=== PATIENT | female | born 1945 | race Caucasian/White ===

== ENCOUNTER → 2020-11-11 12:28 | Outpatient (CLI) | payer MEDICARE, SELFPAY ==
--- NOTE | ~2020-11-11 | MM_ITS ---
EXAMINATION: MM screening [facility] BI w maite HISTORY: Screening mammogram TECHNIQUE: Craniocaudal and mediolateral oblique 3-D tomosynthesis images were obtained and synthetic 2-D images were generated. CAD analysis was submitted and interpreted. COMPARISON: 08/04/2019, 05/01/2018, 04/18/2017 BREAST PARENCHYMAL COMPOSITION: The breasts are heterogeneously dense, which may obscure small masses . FINDINGS: RIGHT BREAST: An asymmetry is present in the posterior third of the upper breast 7 cm from the nipple on the mediolateral oblique view. LEFT BREAST: There is no evidence of suspicious mass, calcification, or architectural distortion to s uggest malignancy. There has been no significant interval change. IMPRESSION: 1. Right breast asymmetry. 2. Additional mammographic views and possible breast ultrasound are recommended. BI-RADS Category 0: Incomplete: Needs additional imaging evaluation. Reviewed, dictated and finalized at location A. ROL ROOM TENDER IMPRESSION: 1. Right breast asymmetry. 2. Additional mammographic views and possible breast ultrasound are recommended . BI-RADS Category 0: Incomplete: Needs additional imaging evaluation.
== END ==
PROVIDERS: PCP Internal Medicine; Visit Provider Internal Medicine
DX: Z12.31 Encounter for screening mammogram for malignant neoplasm of breast (principal); R92.8 Other abnormal and inconclusive findings on diagnostic imaging of breast
CPT/HCPCS: 77063; 77067

== ENCOUNTER → 2020-12-03 14:19 | Outpatient (CLI) | payer MEDICARE, SELFPAY ==
--- NOTE | ~2020-12-03 | MM_ITS ---
EXAMINATION: MM diagnostic mammo unilat RT HISTORY: Right breast asymmetry on screening mammogram TECHNIQUE: Additional 3-D tomosynthesis images of the right breast were performed and synthetic 2-D i mages were generated. CAD analysis was submitted and interpreted. COMPARISON: 11/11/2020, 08/04/2019, 05/01/2018, 04/18/2017 BREAST PARENCHYMAL COMPOSITION: The breasts are heterogeneously dense, which may obscure small masses . FINDINGS: There is a return to baseline fibroglandular appearance in the right breast with spot compr ession views. No suspicious mass, calcification, or architectural distortion are identified. IMPRESSION: 1. No mammographic evidence of malignancy. 2. Recommend routine screening mammography in one year. BI-RADS Category 1: Negative Reviewed, dictated and finalized at location A. E GAMES SUPERVISOR
== END ==
PROVIDERS: PCP Internal Medicine; Visit Provider Internal Medicine
DX: R92.8 Other abnormal and inconclusive findings on diagnostic imaging of breast (principal)
CPT/HCPCS: 77065

== ENCOUNTER 2021-02-15 08:53 | Outpatient (CLI) | payer MEDICARE, SELFPAY ==
--- NOTE | ~2021-02-15 | US_ITS ---
EXAMINATION: US carotid duplex BI DATE: 02/15/2021 09:24 INDICATION: Referral vascular disease. TECHNIQUE: Grayscale, color Doppler, and pulsed Doppler images of the cervical carotid arteries were obtained. The degree of vessel stenosis is placed in one of the following categories: normal, <50%, 5 0-69%, >=70% but less than near-occlusion, near-occlusion, or total occlusion. Note that percent sten osis relative to normal distal artery lumen diameter is indirectly measured from velocity measurement s as described by Davis, et al. Radiology 2003; 229:340-346. Notes: Normal: Peak systolic velocity <125 centimeters/sec and no plaque <50%. Peak systolic velocity <125 ( EDV <40; ICA/CCA PSV ratio <2.0; used these factors only a tandem lesions or low cardiac output or co ntralateral disease) 50-69 %: PSV 125-230 (EDV 40-100; ratio 2-4) >= 70% but less than near occlusion: PSV greater than 230 (EDV > 100; ratio> 4.0) Near Occlusion: PSV that is variable; markedly narrowed lumen Occlusion: Absent flow on color/spectral Doppler and no lumen on tovar scale. COMPARISON: None. FINDINGS: RIGHT: The right common carotid artery (CCA) peak systolic velocity (PSV) is 83 cm/s. The right internal car otid artery (ICA) PSV is 73 cm/s. The right ICA end-diastolic velocity (EDV) is 19 cm/s. The right IC A/CCA PSV ratio is 0.9. The external carotid artery (ECA) PSV is 108 cm/s. There is antegrade flow in the right vertebral artery. LEFT: The left CCA PSV is 87 cm/s. The left ICA PSV is 97 cm/s. The left ICA EDV is 31 cm/s. The left ICA/C CA PSV ratio is 1.1. The ECA PSV is 123 cm/s. There is antegrade flow in the left vertebral artery. IMPRESSION: 1. Less than 50% stenosis in the right internal carotid artery by sonographic criteria. 2. Less than 50% stenosis in the left internal carotid artery by sonographic criteria. Reviewed, dictated and finalized at location A. IMPRESSION: 1. Less than 50% stenosis in the right internal carotid artery by sonographic emmett harper. 2. Less than 50% stenosis in the left internal carotid artery by sonographic mariella parra.
== END 2021-02-15 08:54 | disposition home or self-care (01) ==
PROVIDERS: PCP Internal Medicine; Visit Provider Internal Medicine
DX: R09.89 Other specified symptoms and signs involving the circulatory and respiratory systems (principal); I65.23 Occlusion and stenosis of bilateral carotid arteries
CPT/HCPCS: 93880

== ENCOUNTER → 2021-04-05 10:28 | Outpatient (REF) | payer MEDICARE, SELFPAY | LOC: ANHLAB 10:28 | PROVIDERS: PCP Internal Medicine; Visit Provider Nurse Practitioner | DX: D22.39 Melanocytic nevi of other parts of face (principal) | CPT/HCPCS: 88305 ==

== ENCOUNTER → 2022-01-25 13:17 | Outpatient (CLI) | payer MEDICARE, SELFPAY ==
--- NOTE | ~2022-01-25 | MM_ITS ---
EXAMINATION: MM screening [facility] BI w maite HISTORY: Screening mammogram TECHNIQUE: Craniocaudal and mediolateral oblique 3-D tomosynthesis images were obtained and synthetic 2-D images were generated. CAD analysis was submitted and interpreted. COMPARISON: 12/03/2020, 11/11/2020, 08/04/2019 BREAST PARENCHYMAL COMPOSITION: There are scattered areas of fibroglandular density. FINDINGS: There is no evidence of suspicious mass, calcification, or architectural distortion to sugg est malignancy in either breast. There has been no suspicious interval change. IMPRESSION: 1. No mammographic evidence of malignancy. 2. Recommend routine screening mammography in one year. BI-RADS Category 1: Negative Reviewed, dictated and finalized at location A. OR INTERACTION DESIGNER
== END ==
PROVIDERS: Visit Provider Internal Medicine
DX: Z12.31 Encounter for screening mammogram for malignant neoplasm of breast (principal)
CPT/HCPCS: 77063; 77067

== ENCOUNTER 2022-03-28 12:28 | Outpatient (CLI) | payer MEDICARE, SELFPAY ==
--- NOTE | ~2022-03-28 | XR_ITS ---
EXAM: XR ankle RT min 3V, XR foot RT min 3V HISTORY: PLANTAR PAIN WITH PRESSURE AND MOVEMENT COMPARISON: None available FINDINGS: Decreased mineralization. No fracture or dislocation. No lytic or blastic lesion. Moderate degenerative change at the first MTP. Mild degenerative changes in the tibiotalar articulation and m ultiple midfoot joints. Small ankle joint effusion. Os navicularis. Minimal plantar and moderate Achi lles enthesopathy. Pes planus. No erosion or periosteal change. Soft tissues within normal limits. IMPRESSION: No acute osseous finding in the right ankle or foot. Chronic findings detailed above. Reviewed, dictated and finalized at location K. IMPRESSION: No acute osseous finding in the right ankle or foot. Chronic findings detailed above.
== END 2022-03-28 12:29 | disposition home or self-care (01) ==
PROVIDERS: PCP Internal Medicine; Visit Provider Internal Medicine
DX: M25.579 Pain in unspecified ankle and joints of unspecified foot (principal); S99.919A Unspecified injury of unspecified ankle, initial encounter
CPT/HCPCS: 73610; 73630

== ENCOUNTER 2022-10-05 07:00 | Outpatient (NON) | payer MEDICARE, SELFPAY | END 2022-10-05 07:01 | disposition home or self-care (01) | PROVIDERS: PCP Internal Medicine; Visit Provider Nurse Practitioner | DX: D22.5 Melanocytic nevi of trunk (principal) | CPT/HCPCS: 88305; 88342 ==

== ENCOUNTER 2022-11-09 00:07 | Day surgery (SDC) | payer MEDICARE, SELFPAY ==
[2022-11-02 15:02] VITALS: BMI 29.4
--- NOTE | 2022-11-08 17:13 | PM.HPGS ---
History of Present Illness History of Present Illness Consent: Risks, benefits, and alternatives have been discussed and questions answered. Patient agrees to proceed with procedure. Chief complaint: positive cologuard Narrative: Shilpi Rodgers is a 77 year old female referred for colon cancer screening due to her having had a positive Cologuard test. Review of Systems Review of Systems: All systems reviewed & are unremarkable except as noted in HPI and below PMFSH Past Medical History Medical History Benign essential hypertension Bilateral hearing loss BMI 27.0-27.9,adult BMI 28.0-28.9,adult BMI 29.0-29.9,adult Bruit of right carotid artery Colon cancer screening DJD (degenerative joint disease), multiple sites Encounter for Medicare annual wellness exam Encounter for routine adult health examination without abnormal findings Encounter for screening mammogram for malignant neoplasm of breast History of actinic keratoses History of melanoma in situ Jul 2016 Hyperlipidemia Mild reactive airways disease On snf drug therapy KATHY on CPAP Family History Family History Mother Family history of glaucoma Hypertension Family history of Alzheimer's disease Father Family history of diabetes mellitus in first degree relative Family history of malignant neoplasm of urinary bladder Family history of heart disease in male family member before age 55 Other Diabetes mellitus Family history of cardiovascular disease Social History Social History Smoking status: Never smoker Second hand tobacco smoke exposure: No Alcohol intake: current Alcohol use details: wine every night Substance use: never Substance use type: does not use Lack of Transportation: No Lack of Food: Never True Current Housing: I Have Housing Difficulty Paying Gas/Electric Bills: No Difficulty Paying for Meds: No Currently Unemployed: No Education: Master's Degree or Higher Difficulty w/ Childcare or Family Care: No Living arrangements: with family Spiritual care concerns: No Meds Home Medications and Allergies Home Medications Medication Instructions Recorded Confirmed Type albuterol sulfate 90 mcg/actuation 1 puff inhalation Q4H PRN (Drug) 12/02/19 11/09/22 History aerosol inhaler (Ventolin HFA) Ingestion coenzyme Q10 10 mg capsule 10 mg PO ONCE 12/02/19 11/09/22 History rosuvastatin 40 mg tablet 40 mg PO DAILY #90 tabs 01/11/22 11/09/22 Rx lisinopril 40 mg tablet 40 mg PO DAILY #180 tabs 06/06/22 11/09/22 Rx Cataplex 1 tab-cap PO DAILY 09/12/22 11/09/22 History Prosynbiotic 1 tab-cap PO DAILY 09/12/22 11/09/22 History Qunol 1 tab-cap PO DAILY 09/12/22 11/09/22 History omega-3 fatty acids 1,000 mg 1,000 mg PO DAILY 09/12/22 11/09/22 History capsule turmeric 1 tab-cap PO DAILY 09/12/22 11/09/22 History vitamin E 268 mg (400 unit) capsule 268 mg PO DAILY 09/12/22 11/09/22 History Allergies Allergy/AdvReac Type Severity Reaction Status Date / Time No Known Allergies Allergy Verified 11/09/22 09:08 Exam Const: General: alert Orientation/consciousness: patient oriented x3 Resp: Auscultation: clear to auscultation bilaterally Cardio: Rhythm: regular rhythm GI: GI Palp: Yes Soft to palpation and No Tenderness to palpation present (GI) Neuro: General: patient oriented x3 Assessment and Plan Assessment and plan (1) Positive colorectal cancer screening using Cologuard test: Code(s): R19.5 - Other fecal abnormalities Status: Acute Assessment and Plan: Colonoscopy with possible biopsy or polypectomy or cautery or injection of substances.
[2022-11-09 09:02] VITALS: BP 142/69; PULSE 81; RESP 18; TEMP 35.7; O2SAT 99; BMI 29.3
--- NOTE | 2022-11-09 09:03 | WPDANESEPPF ---
Anes - Initial Pre Proc Eval Procedure: Operation Date: 11/09/22 10:00 Proposed Procedures p Colonoscopy - Trent Glover MD Date/Time: 11/09/22 09:03 Surgeon: Trent Glover MD Pre Op Diagnosis: positive cologuard Patient Data Age: 77 Gender: F Height: 1.57 m Weight: 73 kg Allergies Allergy/AdvReac Type Severity Reaction Status Date / Time No Known Allergies Allergy Verified 11/09/22 09:08 Home Medications Medication Instructions Recorded Confirmed Type albuterol sulfate 90 mcg/actuation 1 puff inhalation Q4H PRN (Drug) 12/02/19 11/09/22 History aerosol inhaler (Ventolin HFA) Ingestion coenzyme Q10 10 mg capsule 10 mg PO ONCE 12/02/19 11/09/22 History rosuvastatin 40 mg tablet 40 mg PO DAILY #90 tabs 01/11/22 11/09/22 Rx lisinopril 40 mg tablet 40 mg PO DAILY #180 tabs 06/06/22 11/09/22 Rx Cataplex 1 tab-cap PO DAILY 09/12/22 11/09/22 History Prosynbiotic 1 tab-cap PO DAILY 09/12/22 11/09/22 History Qunol 1 tab-cap PO DAILY 09/12/22 11/09/22 History omega-3 fatty acids 1,000 mg 1,000 mg PO DAILY 09/12/22 11/09/22 History capsule turmeric 1 tab-cap PO DAILY 09/12/22 11/09/22 History vitamin E 268 mg (400 unit) capsule 268 mg PO DAILY 09/12/22 11/09/22 History Patient hx anesthesia problems: none Family hx anesthesia problems: none Results Review: All pre-operative results and documents have been reviewed as part of the pre-operative evaluation. [facility] Past Medical History Medical History Benign essential hypertension Bilateral hearing loss BMI 27.0-27.9,adult BMI 28.0-28.9,adult BMI 29.0-29.9,adult Bruit of right carotid artery Colon cancer screening DJD (degenerative joint disease), multiple sites Encounter for Medicare annual wellness exam Encounter for routine adult health examination without abnormal findings Encounter for screening mammogram for malignant neoplasm of breast History of actinic keratoses History of melanoma in situ Jul 2016 Hyperlipidemia Mild reactive airways disease On terminal computer operator drug therapy KATYH on CPAP Family History Family History Mother Family history of glaucoma Hypertension Family history of Alzheimer's disease Father Family history of diabetes mellitus in first degree relative Family history of malignant neoplasm of urinary bladder Family history of heart disease in male family member before age 55 Other Diabetes mellitus Family history of cardiovascular disease Social History Social History (Updated 09/12/22 @ 11:35 by Brigette Blas MA) Smoking status: Never smoker Second hand tobacco smoke exposure: No Alcohol intake: current Alcohol use details: wine every night Substance use: never Substance use type: does not use Lack of Transportation: No Lack of Food: Never True Current Housing: I Have Housing Difficulty Paying Gas/Electric Bills: No Difficulty Paying for Meds: No Currently Unemployed: No Education: Master's Degree or Higher Difficulty w/ Childcare or Family Care: No Living arrangements: with family Spiritual care concerns: No Anes - Eval Final PreProcedure Day of Procedure 11/09/22 09:03 Patient weight: overweight Heart: regular rate and rhythm Lungs: clear to auscultation and normal air movement Airway: Mallampati scale class II Neurological: alert and oriented Last oral intake: >/= 8 hours ASA classification: II Emergent: no Anesthetic plan: proceed Anesthesia type and monitoring: general GIVS Results Review: All pre-operative results and documents have been reviewed as part of the pre-operative evaluation. Informed Consent: The patient's anesthetic plan and its attendant risks and benefits were discussed with the patient/family/POA. Questions were solicited and answers provided to the satisfaction of the patient/family/POA.
[2022-11-09] MEDS: LACTATED RINGERS 1,000 ML 150 ML IV CONT (09:19)
[2022-11-09] MEDS: SIMETHICONE ORAL SUSPENSION 20 MG/0.3 ML 30 ML BOTTLE 0.6 ML IRRIGATION (10:10)
[2022-11-09 10:20] VITALS: BP 102/61; PULSE 70; RESP 14; O2SAT 96
[2022-11-09 10:30] VITALS: BP 121/68; PULSE 80; RESP 17; O2SAT 99
[2022-11-09 10:40] VITALS: BP 138/86; PULSE 69; RESP 17; O2SAT 100
== END 2022-11-09 10:53 | disposition home or self-care (01) ==
PROVIDERS: PCP Internal Medicine; Visit Provider Internal Medicine Gastroenterology
PROC: 0DJD8ZZ Inspection of Lower Intestinal Tract, Via Natural or Artificial Opening Endoscopic (ICD-10-PCS; CPT 45378; principal; 2022-11-09 10:00)
DX: Z12.11 Encounter for screening for malignant neoplasm of colon (principal); K57.30 Diverticulosis of large intestine without perforation or abscess without bleeding; K64.8 Other hemorrhoids; R19.5 Other fecal abnormalities; I10 Essential (primary) hypertension; E78.5 Hyperlipidemia, unspecified; J45.909 Unspecified asthma, uncomplicated; G47.33 Obstructive sleep apnea (adult) (pediatric); Z79.51 Long term (current) use of inhaled steroids
CPT/HCPCS: G0121; J2704; J7120

== ENCOUNTER 2023-04-05 07:00 | Outpatient (NON) | payer MEDICARE, SELFPAY | END 2023-04-05 07:01 | disposition home or self-care (01) | LOC: ANHLAB 04-06 12:19 | PROVIDERS: PCP Internal Medicine; Visit Provider Nurse Practitioner | DX: D22.62 Melanocytic nevi of left upper limb, including shoulder (principal) | CPT/HCPCS: 88305 ==

== ENCOUNTER 2023-04-16 11:03 | Outpatient (NON) | payer MEDICARE, SELFPAY | END 2023-04-16 11:04 | disposition home or self-care (01) | LOC: ANHLAB 04-18 11:06 | PROVIDERS: PCP Internal Medicine; Visit Provider Nurse Practitioner | DX: I78.1 Nevus, non-neoplastic (principal) | CPT/HCPCS: 88305 ==

== ENCOUNTER → 2023-04-17 12:30 | Outpatient (CLI) | payer MEDICARE, SELFPAY ==
--- NOTE | ~2023-04-17 | MM_ITS ---
EXAMINATION: MM screening [facility] BI w maite HISTORY: Screening mammogram TECHNIQUE: Craniocaudal and mediolateral oblique 3-D tomosynthesis images were obtained and synthetic 2-D images were generated. CAD analysis was submitted and interpreted. COMPARISON: 01/25/2022, 12/03/2020, 11/11/2020 BREAST PARENCHYMAL COMPOSITION: There are scattered areas of fibroglandular density. FINDINGS: No suspicious mass, calcification, or architectural distortion are identified in either usman ast to suggest malignancy. There has been no suspicious interval change. IMPRESSION: 1. No mammographic evidence of malignancy. 2. Recommend routine screening mammography in one year. BI-RADS Category 1: Negative Reviewed, dictated and finalized at location A.
== END ==
PROVIDERS: PCP Internal Medicine; Visit Provider Internal Medicine
DX: Z12.31 Encounter for screening mammogram for malignant neoplasm of breast (principal)
CPT/HCPCS: 77063; 77067

== ENCOUNTER 2023-10-11 14:08 | Outpatient (NON) | payer MEDICARE, SELFPAY | END 2023-10-11 14:09 | disposition home or self-care (01) | LOC: ANHLAB 14:10 | PROVIDERS: PCP Internal Medicine; Visit Provider Nurse Practitioner | DX: D23.5 Other benign neoplasm of skin of trunk (principal) | CPT/HCPCS: 88305; 88342 ==

== ENCOUNTER 2024-12-16 14:05 | Outpatient (CLI) | payer MEDICARE, SELFPAY ==
--- NOTE | ~2024-12-16 | MM_ITS ---
EXAMINATION: MM screening [facility] BI w maite HISTORY: Screening TECHNIQUE: Craniocaudal and mediolateral oblique 3-D tomosynthesis images were obtained and synthetic 2-D images were generated. CAD analysis was submitted and interpreted. COMPARISON: Comparison to multiple prior studies sequentially, with oldest reviewed study dated 04/2018. BREAST PARENCHYMAL COMPOSITION: Not dense: There are scattered areas of fibroglandular density. FINDINGS: There is no evidence of suspicious mass, calcification, or architectural distortion to sugg est malignancy in either breast. There has been no suspicious interval change. IMPRESSION: 1. No mammographic evidence of malignancy. 2. Recommend routine screening mammography in one year. BI-RADS Category 1: Negative Reviewed, dictated and finalized at location A. NICAL TECHNICAL OFFICER
== END 2024-12-16 14:06 | disposition home or self-care (01) ==
LOC: MICIMG 14:06
PROVIDERS: PCP Internal Medicine; Visit Provider Internal Medicine
DX: Z12.31 Encounter for screening mammogram for malignant neoplasm of breast (principal)
CPT/HCPCS: 77063; 77067

== ENCOUNTER 2025-04-29 11:23 | Outpatient (CLI) | payer MEDICARE, SELFPAY ==
--- NOTE | ~2025-04-29 | US_ITS ---
EXAMINATION: US carotid duplex BI DATE: 04/29/2025 12:20 INDICATION: Symptoms and signs of circulatory and respiratory system abnormality TECHNIQUE: Grayscale, color Doppler, and pulsed Doppler images of the cervical carotid arteries were obtained. The degree of vessel stenosis is placed in one of the following categories: normal, <50%, 5 0-69%, >=70% but less than near-occlusion, near-occlusion, or total occlusion. Note that percent sten osis relative to normal distal artery lumen diameter is indirectly measured from velocity measurement s as described by Davis, et al. Radiology 2003; 229:340-346. Notes: Normal: Peak systolic velocity <125 centimeters/sec and no plaque <50%. Peak systolic velocity <125 ( EDV <40; ICA/CCA PSV ratio <2.0; used these factors only a tandem lesions or low cardiac output or co ntralateral disease) 50-69 %: PSV 125-230 (EDV 40-100; ratio 2-4) >= 70% but less than near occlusion: PSV greater than 230 (EDV > 100; ratio> 4.0) Near Occlusion: PSV that is variable; markedly narrowed lumen Occlusion: Absent flow on color/spectral Doppler and no lumen on tovar scale. COMPARISON: Ultrasound dated 02/15/2021. FINDINGS: RIGHT: The right common carotid artery (CCA) peak systolic velocity (PSV) is 72 cm/s. The right internal car otid artery (ICA) PSV is 86 cm/s. The right ICA end-diastolic velocity (EDV) is 27 cm/s. The right IC A/CCA PSV ratio is 1.2. The external carotid artery (ECA) PSV is 96 cm/s. There is antegrade flow in the right vertebral artery. LEFT: The left CCA PSV is 65 cm/s. The left ICA PSV is 97 cm/s. The left ICA EDV is 22 cm/s. The left ICA/C CA PSV ratio is 1.5. The ECA PSV is 93 cm/s. There is antegrade flow in the left vertebral artery. Incidentally note is made of asymmetric enlargement of the left thyroid lobe, incompletely visualized . IMPRESSION: 1. Less than 50% stenosis in the right internal carotid artery by sonographic criteria. 2. Less than 50% stenosis in the left internal carotid artery by sonographic criteria. Reviewed, dictated and finalized at location A. IMPRESSION: 1. Less than 50% stenosis in the right internal carotid artery by sonographic c leroy. 2. Less than 50% stenosis in the left internal carotid artery by sonographic cr fidel.
--- OUTSIDE RECORDS SUMMARY | 2025-04-29 11:28 | XMS_ITS | Clinical Summary ---
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 SPECIALIST Gender Identity Not on file Sexual Orientation Not on file Plan of Treatment Health Maintenance Due Date Last Done Comments Depression Screening 1945 Fall Risk Assessment 1945 Hepatitis C Screening 1945 Osteoporosis Screening-Bone Density Scan 1945 DTaP/Tdap/Td Vaccine (1 - Tdap) 1958 Hepatitis B Screening 1965 Pneumococcal vaccine 65+ (1 of 1 - PCV) 1997 Zoster Vaccine (1 of 2) 1997 Well Visit 65+ 02/07/2012 Covid-19 Vaccine (6 - 2023-2 5 season) 2024 10/05/2023, 09/08/2022, 09/26/2021, Additional history exists Influenza Vaccine (Season Ended) 2025 Insurance MEDICARE [employer] Care Teams Stock Parts Fabricator Relationship Specialty Start Date End Date Pramod Smith MD [address] [place] [address] PCP - General Internal Medicine 02/04/24
--- OUTSIDE RECORDS SUMMARY | 2025-04-29 11:28 | XMS_ITS | Referral Summary ---
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
--- OUTSIDE RECORDS SUMMARY | 2025-04-29 11:28 | XMS_ITS | Clinical Summary ---
Author Organization [facility] Address [address] [place] [address] Care Team Providers Care Dust Brush Assembler Name Role Phone Pramod Smith MD Primary Care Provider [phone] Source Comments [facility],non-owned Affiliates and Associated Physician Practices is amultiple site organization consisting of ambulatory clinics and hospital sitesin [place], [place] and [place]. This disclosure is being madepursuant to the Care Everywhere program and may not contain all information available regarding this patient. Last updated 18.[facility] Social History Tobacco Use Types Packs/Day Years Used Date Smoking Tobacco: Never Assessed Comments Unknown Sex and Gender Information Value Date Recorded Sex Assigned at Not on file Legal Sex Female 2:49 PM CDT Gender Identity Not on file Sexual Orientation Not on file Plan of Treatment Health Maintenance Due Date Last Done Comments BONE DENSITY TESTING 1945 MEDICARE AWV 12 MONTHS 1945 HEPATITIS C SCREENING 02/01/1965 DTAP/TDAP/TD VACCINES (1 - Tdap) 1966 PNEUMOCOCCAL VACCINE 50+ (1 of 1 - PCV) 1997 ZOSTER VACCINE (1 of 2) 1997 Respiratory Syncytial Virus (RSV) Vaccine Pt: or over 60 yrs (1 - 1-dose 75+ series) 2022 COVID-19 VACCINE ( - 2023-2 5 season) 2024 DEPRESSION SCREENING 11/26/2024 INFLUENZA VACCINE (Season Ended) 2025 HEPATITIS B VACCINE Aged Out No longe r eligible based on patient's age to complete this topic HIB VACCINE Aged Out No longer eligi ble based on patient's age to complete this topic HPV VACCINE Aged Out No longer eligi ble based on patient's age to complete this topic MENINGOCOCCAL (Group B) VACC INE SHARED DECISION-MAKING Aged Out No longer eligibl e based on patient's age to complete this topic MENINGOCOCCAL GROUPS A/C/Y/W VACCINE Aged Out No longer eligible b ased on patient's age to complete this topic Insurance MEDICARE MEDICARE MEDICARE Care Teams Dust Brush Assembler Relationship Specialty Start Date End Date Pramod Smith MD [address] [facility] [address] [facility] [address] [place] [address] PCP - General 06/08/21
--- OUTSIDE RECORDS SUMMARY | 2025-04-29 11:28 | XMS_ITS | Encounter Summary ---
Author Organization [facility] Address [address] [facility] [place] [address] Care Team Providers Care Speeder Operator Name Role Phone Pramod Smith MD Primary Care Provider [phone] Encounter Details Date Type Department Care Team (Late st Contact Info) Description 10/17/2023 Lab Requisition [facility] - DermPath Lab [address] [facility] [place] [id number] Dung Santos MD [address] [facility] [address] [place] [phone] Social History Tobacco Use Types Packs/Day Years Used Date Smoking Tobacco: Never Assessed Comments Unknown Sex and Gender Information Value Date Recorded Sex Assigned at Not on file Legal Sex Female 2:49 PM CDT Gender Identity Not on file Sexual Orientation Not on file documented as of this encounter Plan of Treatment Not on file documented as of this encounter Procedures Procedure Name Priority Date/Time Associated Diagnosis Comments DERMPATH SLIDE CONSULT Routine 10/17/2023 12:00 AM CHURN OPERATOR MARGARINE documented in this encounter Results * DERMPATH SLIDE CONSULT (10/17/2023 12:00 AM CHURN OPERATOR MARGARINE) Case Report Dermatopathology Report Case: [id number] Authorizing Provider: Dung Santos MD Collected: 10/17/2023 12:00 AM Ordering Location: [facility] Derm[facility] Lab Received: 10/17/2023 01:58 PM Pathologist: Angela Sanchez MD Specimen: Slide(s), [id number] left buttocks, [id number] left buttocks 3:04 PM [facility] OPERATOR [facility]ARG[facility]INE DERMATOPATHOLOGY LABORATORY Final Diagnosis Specimen A1. Slide(s), [id number] left buttocks: DERMATOFIBROMA (D23.9) PRESENT AT MARGIN (see microscopic description) Specimen A2. 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 (Received block 10/23/23) Outside diagnosis: DRAFT-Benign dermatofibroma, deep margin positive for benign dermatofibroma, and peripheral margin negative for benign dermatofibroma. 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 3 3:04 PM [facility] DERMATOPATHOLOGY LABORATORY Microscopic Description Specimen A1. Slide(s), [id number] left buttocks: There is epidermal hyperplasia. Within the dermis, there are fibrohistiocytic cells in haphazard array among coarse collagen bundles. The fibrohistiocytic cells stains focally and weakly for Factor 13A and are negative for S-100. This lesion is present at the margin of the specimen. Specimen A2. Slide(s), [id number] left buttocks: This is a compound nevus. There is a lentiginous proliferation of melanocytes between nevus nests of cells along the dermal-epidermal junction. There is underlying lamellar fibroplasia of the papillary dermis. The intradermal component is bland in appearance and matures with depth. (Compound Sebastian's Nevus) This lesion is present at the margin of the specimen. Additional deeper sections were obtained and reviewed. COMMENT: The histopathologic findings of the portion of the lesion sampled are reassuring. However, as this lesion is present at the margins of the specimen, clinicopathological correlation is recommended as to the nature of the remaining lesion. 3 3:04 PM [facility] DERMATOPATHOLOGY LABORATORY Disclaimer An external and internal positive and negative controls are appropriate for the histochemical, immunohistochemical and immunofluorescence stain(s) in this case (if any), except where stated explicitly. The performance characteristics of the stain(s) cited in this report were developed and its performance characteristic determined by the Dermatopathology Laboratory at [facility], directed by Dr. Derek Bhagat. These tests need not be, and therefore are not, approved by the [place] Food and Drug Administration. The tests are used for clinical purposes. Billing Codes Specimen Charges Stain Charges 57287 1 28436 1 3 3:04 PM [facility] DERMATOPATHOLOGY LABORATORY Embedded Images 3 3:04 PM [facility] DERMATOPATHOLOGY LABORATORY Pathology/Cytolog y SLIDE / Unknown 10/17/2023 10/17/2023 1:58 PM CHURN OPERATOR MARGARINE Dung Santos MD LAB - PATHOLOGY/CYTOLOGY ORDERAB LES Final Result DERMATOPATHOLOGY LABORATORY [facility] - Department of Dermatology [facility] Medicine [address] [place] [address], [address] [phone] documented in this encounter Visit Diagnoses Not on filedocumented in this encounter Care Teams Speeder Operator Relationship Specialty Start Date End Date Pramod Smith MD [address] [place] [phone] PCP - General 06/08/21 documented as of this encounter
== END 2025-04-29 11:24 | disposition home or self-care (01) ==
PROVIDERS: PCP Internal Medicine; Visit Provider Internal Medicine
DX: I65.23 Occlusion and stenosis of bilateral carotid arteries (principal)
CPT/HCPCS: 93880